=== PATIENT | female | born 1945 | race Caucasian/White ===

== ENCOUNTER → 2019-08-01 | Day surgery (SDC) | payer MEDICARE, OTHER ==
[2019-07-25 14:15] LABS: BASOPHILS # (AUTO) 0.1 (0.0-0.1); BASOPHILS % 0.9 % (0.0-1.0); EOSINOPHILS # (AUTO) 0.3 (0.0-0.4); EOSINOPHILS % 2.8 % (0.0-6.0); HEMATOCRIT 40.3 % (34.2-44.1); HEMOGLOBIN 13.3 g/dL (12.0-16.0); LYMPHOCYTES # (AUTO) 3.4 (1.0-3.2); LYMPHOCYTES % 35.9 % (18.0-39.1); MEAN CORPUSCULAR HEMOGLOBIN 29.3 pg (28-32); MEAN CORPUSCULAR VOLUME 88.8 fL (81-99); MONOCYTES # (AUTO) 0.8 (0.2-0.8); MONOCYTES % 8.6 % (4.4-11.3); NEUTROPHILS # (AUTO) 4.9 (2.1-6.9); NEUTROPHILS % 51.5 % (38.7-80.0); PLATELET COUNT 266 x10e3/uL (140-360); RED BLOOD COUNT 4.54 x10e6/uL (3.6-5.1); RED CELL DISTRIBUTION WIDTH 13.3 % (11.7-14.4)
[~2019-08-01] MED LIST: CO Q-10100 MG PO; CURCUMIN PO; DICYCLOMINE HCL20 MG PO; FENOFIBRATE145 MG PO; FENTANYL CITRATE/PF 100MCG/2 ML INJ ONE; FISH OIL PO; LIDOCAINE HCL 2% LOCAL INJ 5 ML SDV VIAL INJ ONE; MIDAZOLAM HCL 2 MG/2 ML VIAL ONE; MULTIVITAMINS1 EAC7 PO; NAC600 MG PO; OCUVITE TABLET1 EAC1 PO; PROBIOTIC PO; PROPOFOL IV EMULSION 10 MG/ML 50 ML VIAL ONE; SYNTHROID75 MCG PO; VITAMIN D35000 UNIT PEG; [UNRECOGNIZED DRUG - OTHER] PO
--- OUTSIDE RECORDS SUMMARY | 2019-08-01 12:32 | XMS REPORT ---
Author Author [facility] Address Unknown Phone Unavailable Care Team Providers Care Home Care Liaison Name Role Phone Unavailable Unavailable Payers Payer Name Policy Type Policy Number Effective Date Expiration Date Problems This patient has no known problems. Allergies, Adverse Reactions, Alerts Allergy Name Allergy Type Status Severity Reaction(s) Onset Date Inactive Date Treating Clinician Comments Aubvzsx-Zot-Xqi Reductase Inhibitor DA Active U 2018-07-21 00:00:00 No Known Allergies DA Active U 2015-02-08 00:00:00 Medications This patient has no known medications.
[2019-08-01 16:19] VITALS: BP 112/56
[2019-08-01 16:32] LABS: ALBUMIN 3.4 g/dL (3.5-5.0); ALBUMIN/GLOBULIN RATIO 1.1 (0.8-2.0); ANION GAP 13.2 mmol/L (8-16); CALCIUM 9.2 mg/dL (8.4-10.2); CREATININE, SERUM 0.96 mg/dL (0.57-1.11); POTASSIUM 4.2 mmol/L (3.5-5.1)
--- NOTE | 2019-08-01 18:36 | Operative Report ---
DATE OF PROCEDURE: 08/01/2019 SURGEON: Sudheer South MD PROCEDURE: EGD with biopsies. INDICATIONS FOR PROCEDURE: Recurrent oral thrush, dyspepsia. MEDICATIONS: The patient was done under MAC, please see anesthesiologist's note. PROCEDURE IN DETAIL: With the patient in left lateral decubitus position, a flexible fiberoptic Olympus gastroscope was introduced into the esophagus under direct visualization without any difficulty. There were some prominent esophageal veins noted versus grade 1 esophageal varices. A focal raised area was noted in the distal esophagus that was biopsied. The scope was then advanced with ease into the stomach and mucosa overlying the antrum and the body revealed some patchy erythema and several hyperplastic-appearing polyps were noted in the body of the stomach and some were partially excised with the cold biopsy forceps. Pylorus was of normal contour and shape, it was intubated with ease and the scope was advanced all the way to the second portion of the duodenum. A minute nodule was noted in the proximal second portion that was biopsied. Mucosa overlying the duodenal bulb grossly appeared to be within normal limits. The scope was then withdrawn back into the stomach and retroflexed, and mucosa overlying the fundus appeared to be within normal limits. An approximately 4 mm nodule was noted at the cardia and that was biopsied. The scope was then straightened out, it was subsequently withdrawn, and the patient tolerated the procedure well. IMPRESSION: 1. Distal esophagitis, mild. 2. ? Grade 1 esophageal varices. 3. Focal raised area, distal esophagus, biopsied. 4. Gastric polyps, body, hyperplastic-appearing, some were partially excised with the cold biopsy forceps. 5. Duodenal nodule biopsy. PLAN: Follow up histology. Initiate Protonix 40 mg 1 p.o. q.a.m. before meals. If biopsy of the nodule of the cardia turns out to be benign, she will need to have a repeat EGD with an attempt to remove the whole nodule with snare polypectomy. We will check hepatic panel. MD QUINN Trujillo/KYRA /[id number] cc: Kenn Chamorro DO
== END | disposition home or self-care (01) ==
LOC: OR 12:30
PROVIDERS: ATTEND Internal Medicine Gastroenterology
DX: B37.81 Candidal esophagitis (principal); R03.0 Elevated blood-pressure reading, without diagnosis of hypertension; Z68.26 Body mass index [BMI] 26.0-26.9, adult; M46.90 Unspecified inflammatory spondylopathy, site unspecified; E03.9 Hypothyroidism, unspecified; K31.7 Polyp of stomach and duodenum; K63.89 Other specified diseases of intestine; K21.0 Gastro-esophageal reflux disease with esophagitis; K22.70 Barrett's esophagus without dysplasia; Z01.810 Encounter for preprocedural cardiovascular examination; Z01.812 Encounter for preprocedural laboratory examination
CPT/HCPCS: 36415 ×2; 43239; 80053; 85025; 88305; 88312; 93005; J2001; J2250; J2704; J3010

== ENCOUNTER → 2020-09-18 | Outpatient (CLI) | payer MEDICARE, OTHER ==
[~2020-09-18] MED LIST changes: +DIATRIZOATE MEGL/DIATRIZOA SOD 30 ML BTL PO ONE; -FENTANYL CITRATE/PF 100MCG/2 ML INJ ONE; +IOPAMIDOL 370 MG/ML 200 ML INFUS..BTL INJ ONE; -LIDOCAINE HCL 2% LOCAL INJ 5 ML SDV VIAL INJ ONE; -MIDAZOLAM HCL 2 MG/2 ML VIAL ONE; -PROPOFOL IV EMULSION 10 MG/ML 50 ML VIAL ONE; +SODIUM CHLORIDE 0.9% 50ML 50 ML ONE
--- NOTE | 2020-09-18 15:49 | Diagnostic Imaging Report ---
CT of the abdomen and pelvis with contrast TECHNIQUE: CT of the abdomen and pelvis WITH intravenous contrast and WITH oral contrast. Dose modulation, iterative reconstruction, and/or weight-based adjustment of the mA/kV was utilized to reduce the radiation dose to as low as reasonably achievable. IV CONTRAST: 100 mL of Isovue 370 ORAL CONTRAST: Gastrografin RADIATION DOSE: Total DLP: 452 mGy*cm COMPLICATIONS: None INDICATION: ^[id number] ^1230 ^LOWER ABDOMINAL PAIN. COMPARISON: None. FINDINGS: LOWER THORAX: Unremarkable. HEPATOBILIARY: Liver is diffusely hypoattenuating. No suspicious hepatic lesion is identified. Gallbladder is surgically absent. No biliary ductal dilatation. SPLEEN: No splenomegaly. PANCREAS: No focal masses or ductal dilatation. ADRENALS: An indeterminate enhancing left adrenal nodule is noted measuring 2.4 x 2.0 cm. Additional smaller medial left adrenal limb nodule is noted measuring up to 1.2 cm on axial image 33. There is a questionable subcentimeter right lateral inferior adrenal limb nodule (axial image 30) measuring up to 7 mm. KIDNEYS/URETERS: Symmetric cortical enhancement without hydronephrosis or perinephric stranding. Right parapelvic cyst is noted. Ureters are not dilated. PELVIC ORGANS/BLADDER: Urinary bladder is unremarkable. Uterus contains a thickened endometrial complex measuring up to 6 mm. Recommend follow-up ultrasound and possible gynecological evaluation/biopsy. PERITONEUM/RETROPERITONEUM: No free air or fluid. Focal infiltration and induration of the mesentery is noted with a few prominent mesenteric lymph nodes in the midabdomen. LYMPH NODES: No other lymphadenopathy noted. VESSELS: Negative for abdominal aortic aneurysm. Multifocal calcified and noncalcified atherosclerotic disease of the aorta is noted. GI TRACT: Gastrografin is noted throughout the stomach, small bowel loops and proximal colon. Negative for obstruction. No surrounding inflammatory changes are noted. Moderate colonic stool retention is noted. A few diverticula of the sigmoid colon are noted without surrounding inflammatory changes. BONES AND SOFT TISSUES: There are severe degenerative changes of the lumbar spine with multiple partially calcified posterior disc bulges, complete disc space loss and vacuum phenomena extending from L1-2 through L5-S1. Multilevel facet arthropathy is also noted. Multilevel facet arthropathy is noted of the lumbar spine with mild left convex curvature centered at L2. No suspicious destructive lesion is identified. Soft tissues are unremarkable. IMPRESSION: 1. Severe diffuse hepatic steatosis. 2. Indeterminate dominant left adrenal 2.4 cm enhancing nodule. Smaller left inferiomedial and right inferolateral nodules are also noted. Consider dedicated adrenal protocol CT or MRI for further evaluation. 3. Thickened endometrial complex measuring up to 6 mm. Consider follow-up ultrasound and gynecologic evaluation of clinically indicated. 4. Findings suggestive of mesenteric panniculitis. 5. Severe diffuse degenerative changes of the lumbar spine. Multilevel bilateral neural foraminal stenosis is noted from L1-2 through L5-S1. 6. Uncomplicated colonic diverticulosis. Moderate colonic stool retention is noted. Signed by: Deion Covarrubias MD on 09/18/2020 3:46 PM
== END ==
LOC: CT 11:46
PROVIDERS: ATTEND Internal Medicine Gastroenterology
DX: R10.30 Lower abdominal pain, unspecified (principal)
CPT/HCPCS: 74177; Q9967

== ENCOUNTER → 2020-10-07 | Outpatient (CLI) | payer MEDICARE, OTHER ==
[~2020-10-07] MED LIST changes: -DIATRIZOATE MEGL/DIATRIZOA SOD 30 ML BTL PO ONE; +EYE MED PO; +PROTONIX20 MG PO; +SODIUM CHLORIDE 0.9% 500ML 500 ML ONE; +TYLENOL325 M2 PO; -VITAMIN D35000 UNIT PEG; +VITAMIN D35000 UNIT PO
[2020-10-07 12:44] LABS: CREATININE, SERUM 1.04 mg/dL (0.57-1.11)
== END ==
LOC: CT 11:33
PROVIDERS: ATTEND Internal Medicine Gastroenterology
DX: R10.9 Unspecified abdominal pain (principal); E27.8 Other specified disorders of adrenal gland
CPT/HCPCS: 36415; 74170; 82565; 84520; 96360; J7040; Q9967

== ENCOUNTER → 2020-10-08 | Day surgery (SDC) | payer MEDICARE, OTHER ==
[2020-10-03 13:34] LABS: BASOPHILS # (AUTO) 0.1 (0.0-0.1); BASOPHILS % 1.4 % (0.0-1.0); EOSINOPHILS # (AUTO) 0.3 (0.0-0.4); EOSINOPHILS % 3.7 % (0.0-6.0); HEMATOCRIT 38.1 % (34.2-44.1); HEMOGLOBIN 12.2 g/dL (12.0-16.0); LYMPHOCYTES # (AUTO) 3.3 (1.0-3.2); LYMPHOCYTES % 41.8 % (18.0-39.1); MEAN CORPUSCULAR HEMOGLOBIN 28.2 pg (28-32); MONOCYTES # (AUTO) 0.6 (0.2-0.8); MONOCYTES % 7.8 % (4.4-11.3); NEUTROPHILS # (AUTO) 3.5 (2.1-6.9); PLATELET COUNT 269 x10e3/uL (140-360); RED BLOOD COUNT 4.33 x10e6/uL (3.6-5.1); RED CELL DISTRIBUTION WIDTH 13.8 % (11.7-14.4)
[~2020-10-08] MED LIST changes: +GLUCAGON FOR INJ 1 MG VIAL ONE; +HYOSCYAMINE 0.125 MG TAB ONE; -IOPAMIDOL 370 MG/ML 200 ML INFUS..BTL INJ ONE; +KETAMINE HCL INJ 50 MG/ML 10 ML VIAL ONE; +LIDOCAINE HCL 2% LOCAL INJ 5 ML SDV VIAL INJ ONE; +MIDAZOLAM HCL 2 MG/2 ML VIAL ONE; +PROPOFOL IV EMULSION 10 MG/ML 20 ML VIAL ONE; -SODIUM CHLORIDE 0.9% 500ML 500 ML ONE; -SODIUM CHLORIDE 0.9% 50ML 50 ML ONE
[2020-10-08 11:58] VITALS: BP 134/74
== END | disposition home or self-care (01) ==
LOC: OR 08:16
PROVIDERS: ATTEND Internal Medicine Gastroenterology
DX: D12.2 Benign neoplasm of ascending colon (principal); D12.4 Benign neoplasm of descending colon; D12.3 Benign neoplasm of transverse colon; K29.60 Other gastritis without bleeding; K21.00 Gastro-esophageal reflux disease with esophagitis, without bleeding; K63.89 Other specified diseases of intestine; K31.7 Polyp of stomach and duodenum; K62.1 Rectal polyp; K57.30 Diverticulosis of large intestine without perforation or abscess without bleeding; K64.8 Other hemorrhoids; K31.89 Other diseases of stomach and duodenum; R03.0 Elevated blood-pressure reading, without diagnosis of hypertension; Z68.27 Body mass index [BMI] 27.0-27.9, adult; Z86.010 Personal history of colon polyps; K29.80 Duodenitis without bleeding; Z01.810 Encounter for preprocedural cardiovascular examination; Z01.812 Encounter for preprocedural laboratory examination; Z20.828 Contact with and (suspected) exposure to other viral communicable diseases
CPT/HCPCS: 36415; 43239; 45380; 45385; 85025; 88305; 88312; 93005; J1610; J2001; J2250; J2704; U0002; 45378; 45384; 88304

== ENCOUNTER 2020-12-24 09:08 | Emergency (ER) | payer MEDICARE, OTHER ==
[~2020-12-24] VITALS: Ht 162.6 cm; Wt 70.3 kg
[~2020-12-24 09:08] MED LIST changes: -GLUCAGON FOR INJ 1 MG VIAL ONE; -HYOSCYAMINE 0.125 MG TAB ONE; -KETAMINE HCL INJ 50 MG/ML 10 ML VIAL ONE; -LIDOCAINE HCL 2% LOCAL INJ 5 ML SDV VIAL INJ ONE; -MIDAZOLAM HCL 2 MG/2 ML VIAL ONE; -PROPOFOL IV EMULSION 10 MG/ML 20 ML VIAL ONE
[2020-12-24] MEDS ORDERED: KETOROLAC TROMETHAMINE 30 MG/ML VIAL IM STA (09:24)
[2020-12-24] MEDS ORDERED: ULTRAM50 MG PO (11:35)
== END 2020-12-24 11:57 | disposition home or self-care (01) ==
LOC: ER 09:30
DX: M79.671 Pain in right foot (principal); M79.674 Pain in right toe(s); N18.6 End stage renal disease; E03.9 Hypothyroidism, unspecified; F41.9 Anxiety disorder, unspecified; M19.90 Unspecified osteoarthritis, unspecified site
CPT/HCPCS: 73630; 99283; J1885